=== PATIENT | female | born 1945 | race Caucasian/White ===

== ENCOUNTER 2017-10-28 11:39 | Day surgery (SDC) | payer MEDICARE, OTHER ==
[2017-10-28] MEDS ORDERED: PROPOFOL 20 ML (13:12)
[2017-10-28] MEDS ORDERED: LIDOCAINE 2% (SDV) 5 ML INJ (13:12)
[2017-10-28] MEDS ORDERED: ONDANSETRON 4 MG INJ (13:53)
== END 2017-10-28 16:17 | disposition home or self-care (01) ==
LOC: GIL 11:39
DX: K44.9 Diaphragmatic hernia without obstruction or gangrene (principal); K21.9 Gastro-esophageal reflux disease without esophagitis; K29.70 Gastritis, unspecified, without bleeding; K25.9 Gastric ulcer, unspecified as acute or chronic, without hemorrhage or perforation; I10 Essential (primary) hypertension; M81.0 Age-related osteoporosis without current pathological fracture
CPT/HCPCS: 43239; 87081

== ENCOUNTER → 2017-10-28 | Outpatient (CLI) | payer MEDICARE, OTHER ==
[2017-10-28] MEDS: IOHEXOL 300MG/ML 30 ML BTL (17:16)
== END | disposition home or self-care (01) ==
LOC: RAD 17:09
DX: R10.9 Unspecified abdominal pain (principal)
CPT/HCPCS: 74176